=== PATIENT | female | born 1990 | race Two or more races ===

== ENCOUNTER 2018-08-11 09:42 | Emergency (ER) | payer OTHER ==
[~2018-08-11] VITALS: Ht 165.1 cm; Wt 67.1 kg
--- NOTE | 2018-08-11 09:42 | NUR ---
BIB SELF W C/O VAGINAL DISCHARGE WHITE TO YELLOWISH APPEARANCE, +FOUL SMELLING., TO ER BED 16, HOOKED TO MONITOR, VSS, NAD, AWAITING MD LYNN
--- NOTE | 2018-08-11 10:28 | NUR ---
DR HEREDIA AT BEDSIDE FOR EVAL.
--- NOTE | 2018-08-11 10:50 | NUR ---
CHAPPERONED DR HEREDIA AT BEDSIDE FOR PELVIC EXAM
[2018-08-11 10:59] LABS: APPEARANCE,URINE Clear (CLEAR); BILIRUBIN,URINE Negative (NEGATIVE); BLOOD, URINE Negative Ery/uL (NEGATIVE); COLOR,URINE Yellow (YELLOW); KETONES,URINE Trace (NEGATIVE); LEUKOCYTE ESTERASE ,URINE Negative (NEGATIVE); NITRITE, URINE Negative (NEGATIVE); PH,URINE 6.5 (5.0-8.0); PROTEIN,URINE Negative (NEGATIVE); UGLUCOSE Negative (NEGATIVE); UROBILINOGEN,URINE 0.2 EU/dL (0.2)
[2018-08-11 11:07] LABS: BACTERIA,URINE None seen /HPF (None Seen); RBC,URINE 0-2 /HPF (0-2); SQUAMOUS EPITHELIAL CELL,UR Few /HPF (None Seen); WBC,URINE 0-3 /HPF (0-3)
[2018-08-11] MEDS ORDERED: CEFTRIAXONE 1 G VIAL IM ONE (11:30)
[2018-08-11] MEDS ORDERED: AZITHROMYCIN 250 MG TABLET PO ONE (11:30)
[2018-08-11] MEDS ORDERED: LIDOCAINE /MPF 1% VIAL 5 ML VIAL ONE (11:59)
[2018-08-11] MEDS ORDERED: CEFTRIAXONE 1 G VIAL ONE (11:59)
[2018-08-11] MEDS ORDERED: AZITHROMYCIN 250 MG TABLET ONE (12:00)
--- NOTE | 2018-08-11 12:11 | NUR ---
Patient discharged to home in stable condition. Written and verbal after care instructions given. Patient verbalizes understanding of instruction.
[2018-08-11 12:23] VITALS: BP 128/72
== END 2018-08-11 12:15 | disposition home or self-care (01) ==
LOC: ER 09:44
DX: N72 Inflammatory disease of cervix uteri (principal)
CPT/HCPCS: 81001; 87081; 87110; 87210; 96372; 99283; A6402; J0696; J3490; 81000-TC